=== PATIENT | female | born 1970 | race Two or more races ===

== ENCOUNTER 2016-10-02 16:50 | Emergency (ER) | payer OTHER ==
[~2016-10-02] VITALS: Ht 162.6 cm; Wt 99.8 kg
== END 2016-10-02 17:39 | disposition short-term general hospital (02) ==
LOC: ER 16:50
DX: S90.122A Contusion of left lesser toe(s) without damage to nail, initial encounter (principal); W20.8XXA Other cause of strike by thrown, projected or falling object, initial encounter; Y92.89 Other specified places as the place of occurrence of the external cause